=== PATIENT | female | born 1945 | race Caucasian/White ===

== ENCOUNTER 2016-08-03 05:05 | Observation (INO) | payer MEDICARE ==
--- NOTE | 2016-08-03 05:29 | ED ---
General Adult HPI - General Chief complaint: Chest Pain Stated complaint: chest pain Time Seen by Provider: 08/03/16 05:16 Source: patient, RN notes reviewed Mode of arrival: EMS Limitations: no limitations - History of Present Illness Initial comments: Patient is a pleasant 70-year-old female presenting to the emergency department complaining of chest discomfort. Patient was transferred from [place] for cardiac evaluation. Patient is currently symptom-free. Patient has been having symptoms for the past 2 weeks. Symptoms are exertional. Symptoms started last night with housework. No associated dyspnea however patient does have some associated nausea. No diaphoresis. Symptoms are somewhat similar to patient's previous heart attack and stent placement however not quite as severe. No radiation. Review of Systems ROS Statement: Those systems with pertinent positive or pertinent negative responses have been documented in the HPI. ROS Other: All systems not noted in ROS Statement are negative. Constitutional: Denies: fever Eyes: Denies: eye pain ENT: Denies: ear pain Respiratory: Denies: cough Cardiovascular: Reports: chest pain Endocrine: Denies: fatigue Gastrointestinal: Reports: nausea Genitourinary: Denies: dysuria Musculoskeletal: Denies: back pain Skin: Denies: rash Neurological: Denies: weakness Past Medical History Past Medical History: COPD, Myocardial Infarction ([place]) Additional Past Medical History / Comment(s): had stent placed in 2009 after [place] History of Any Multi-Drug Resistant Organisms: None Reported Past Surgical History: Heart Catheterization With Stent Past Psychological History: No Psychological Hx Reported Smoking Status: Former smoker Past Alcohol Use History: None Reported Past Drug Use History: None Reported General Exam Limitations: no limitations General appearance: alert, in no apparent distress Head exam: Present: atraumatic Eye exam: Present: normal appearance, PERRL ENT exam: Present: normal oropharynx Neck exam: Present: normal inspection Respiratory exam: Present: normal lung sounds bilaterally. Absent: chest wall tenderness Cardiovascular Exam: Present: regular rate, normal rhythm Expanded Peripheral pulses: 2+: Radial (R), Radial (L), Dorsalis Pedis (R), Dorsalis Pedis (L) GI/Abdominal exam: Present: soft. Absent: tenderness Extremities exam: Present: normal inspection. Absent: pedal edema, calf tenderness Neurological exam: Present: alert Psychiatric exam: Present: normal affect, normal mood Skin exam: Absent: rash Course Vital Signs 08/03/16 05:07 Temperature 97.4 F L Pulse Rate 80 Respiratory 20 Rate Blood Pressure 160/73 O2 Sat by Pulse 98 Oximetry EKG Findings - EKG Comments: EKG Findings:: Normal sinus rhythm 73. Normal intervals. Normal axis. Normal QRS. Normal ST-T. Medical Decision Making - Medical Decision Making Reviewed chart and lab work and x-ray and EKG from [place]. Case was discussed with Dr. Peguero, who will admit for hospital call. Disposition Clinical Impression: Unstable angina pectoris Disposition: ADMITTED IP TO THIS HOSP Referrals: Oliver Guadalupe DO [Primary Care Provider] - 1-2 days Time of Disposition: 05:32
[2016-08-03] MEDS ORDERED: HEPARIN SODIUM,PORCINE 5,000 UNIT/ML 1 ML VIAL IV PRN (05:32)
[2016-08-03] MEDS ORDERED: HEPARIN SODIUM,PORCINE 5,000 UNIT/ML 1 ML VIAL IV ONE (05:32)
[2016-08-03] MEDS ORDERED: HEPARIN SODIUM,PORCINE/D5W PMX 25,000 UNIT in DEXTROSE/WATER 1 500ML.BAG IV SCH (05:45)
[2016-08-03] MEDS ORDERED: NITROGLYCERIN OINT 1 INCH/GM PACKET TOPICAL SCH (06:00)
[2016-08-03] MEDS: NITROGLYCERIN SL TABS 0.4 MG TAB SUBLINGUAL PRN ×4 (06:03→07:14)
[2016-08-03] MEDS ORDERED: MORPHINE SULFATE 2 MG/ML SYRINGE IVP PRN (07:21)
--- NOTE | 2016-08-03 08:00 | P.CRDCN ---
History of Present Illness Consult date: 08/03/16 Chief complaint: Chest pain History of present illness: This is a pleasant 70-year-old female patient who sees Dr. Dr. Briggs with a past medical history significant for CAD and prior stenting of the RCA was performed in 2009, hypertension, dyslipidemia, and significant history of smoking, was transferred from [facility] for further cardiac evaluation. She has been experiencing intermittent episodes of chest discomfort started around the new and continuous since then. She described intermittent episodes of pressure in the middle of the chest exertional and at resting without any radiation to the arm or neck or shoulders and without associated symptoms. 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 The patient was transferred from [facility] and we don't have any blood work at this point but she is in process to have troponin drawn. The EKG showed sinus mechanism without any significant ST or T-wave abnormalities noted. I would obtain serial cardiac enzymes. Continue monitor the patient's. If she develop any more chest discomfort I would consider proceeding with heart catheterization. Past Medical History Past Medical History: Coronary Artery Disease (CAD), Chest Pain / Angina, COPD, CVA/TIA, GERD/Reflux, Hyperlipidemia, Hypertension, Myocardial Infarction ([place]), Pneumonia Additional Past Medical History / Comment(s): had stent placed in 2009 after [place] Last Myocardial Infarction Date:: 2009 History of Any Multi-Drug Resistant Organisms: None Reported Past Surgical History: Breast Surgery, Heart Catheterization With Stent, Hysterectomy, Tonsillectomy Additional Past Surgical History / Comment(s): cath with stent in 2009, benign breast biopsies, stomach tumor removal Additional Past Anesthesia/Blood Transfusion Reaction / Comment(s): pt states blood pressure drops and that she takes a long time to come out of anesthesia Date of Last Stent Placement:: 2009 Past Psychological History: No Psychological Hx Reported Smoking Status: Former smoker Past Alcohol Use History: None Reported Past Drug Use History: None Reported - Past Family History Father Family Medical History: Myocardial Infarction ([place]) Additional Family Medical History / Comment(s): at 73 from [place] Mother Family Medical History: Cancer, Myocardial Infarction ([place]) Additional Family Medical History / Comment(s): from lung cancer Sister(s) Family Medical History: Diabetes Mellitus Brother(s) Family Medical History: Diabetes Mellitus Daughter(s) Additional Family Medical History / Comment(s): was in a bad car accident and is addicted to prescription pills Medications and Allergies Home Medications Medication Instructions Recorded Confirmed Type Albuterol Inhaler [Ventolin Hfa 60 mcg INHALATION PRN 08/03/16 History Inhaler] Ascorbic Acid [Vitamin C] 500 mg PO BID 08/03/16 08/03/16 History Aspirin [Adult Low Dose Aspirin EC] 81 mg PO DAILY 08/03/16 08/03/16 History Cyanocobalamin [Vitamin B-12] 1,000 mg PO DAILY 08/03/16 08/03/16 History Fluticasone/Salmeterol [Advair 1 mcg INHALATION BID 08/03/16 08/03/16 History 250-50 Diskus] Magnesium 500 mg PO HS 08/03/16 08/03/16 History Metoprolol Succinate (ER) [Toprol 25 mg PO HS 08/03/16 08/03/16 History Xl] Metoprolol Succinate (ER) [Toprol 50 mg PO DAILY 08/03/16 08/03/16 History Xl] Multivitamins, Thera [Multivitamin] PO DAILY 08/03/16 History [place]-3 Fatty Acids/Fish Oil [Fish 1,000 mg PO DAILY 08/03/16 08/03/16 History Oil 1,000 mg Softgel] Pantoprazole [Protonix] 40 mg PO HS 08/03/16 08/03/16 History Potassium 595 mg PO HS 08/03/16 08/03/16 History Tiotropium 18 Mcg/Puff [Spiriva] 1 cap INHALATION DAILY 08/03/16 08/03/16 History amLODIPine [Norvasc] 2.5 mg PO DAILY 08/03/16 08/03/16 History Allergies Allergy/AdvReac Type Severity Reaction Status Date / Time cefaclor [From Ceclor] Allergy Anaphylaxis Verified 08/03/16 05:43 Penicillins AdvReac Severe Anaphylaxis Verified 08/03/16 05:43 acetaminophen [From Vicodin] AdvReac Anaphylaxis Verified 08/03/16 05:43 hydrocodone [From Vicodin] AdvReac Anaphylaxis Verified 08/03/16 05:43 Physical Exam Vitals: Vital Signs Temp Pulse Resp BP 08/03/16 06:46 18 08/03/16 06:08 97.5 F L 88 18 126/65 Intake and Output 08/02/16 08/03/16 08/03/16 22:59 06:59 14:59 Intake Total 25 Balance 25 Intake: Amount of Fluid Infused ( 25 ml) Other: # Voids 1 - Constitutional General appearance: no acute distress - Respiratory Respiratory: bilateral: CTA - Cardiovascular Rhythm: regular Heart sounds: normal: S1, S2 Abnormal Heart Sounds: systolic murmur Results 08/03/16 07:03 Coagulation 08/03/16 Range/Units 07:03 APTT 41.2 H (22.0-30.0) sec CBC 08/03/16 Range/Units 07:03 Plt Count 171 (150-450) k/uL Current Medications Generic Name Dose Route Start Last Admin Trade Name Freq PRN Reason Stop Dose Admin Aspirin 325 mg 08/04/16 09:00 Aspirin PO DAILY [facility] Heparin Sodium (Porcine) 0 unit 08/03/16 05:32 Heparin IV Q6HR PRN Low PTT Protocol Heparin Sodium/Dextrose 25,000 500 mls @ 17.41 mls/hr 08/03/16 05:45 06:06 unit/ IV Solution IV 12 units/kg/hr .Q24H PREETI 17.41 mls/hr Protocol Administration 12 UNITS/KG/HR Morphine Sulfate 2 mg 08/03/16 07:21 08/03/16 07:37 Morphine Sulfate (Inj) IVP 2 mg Q4H PRN Administration Pain/Discomfort Nitroglycerin 1 inch 08/03/16 06:00 08/03/16 06:15 Nitro-Bid Oint TOPICAL Not Given Q6HR [facility] Nitroglycerin 0.4 mg 08/03/16 05:32 08/03/16 07:14 Nitrostat SUBLINGUAL 0.4 mg Q5M PRN Administration Chest Pain Intake and Output 08/02/16 08/03/16 08/03/16 22:59 06:59 14:59 Intake Total 25 Balance 25 Intake: Amount of Fluid Infused ( 25 ml) Other: # Voids 1 08/03/16 07:03 Assessment and Plan Plan: Assessment #1 intermittent episodes of chest discomfort #2 known CAD with prior RCA stenting #3 significant history of smoking Plan #1 obtain serial cardiac enzymes #2 obtain an echocardiogram was Doppler #3 follow-up with the patient
[2016-08-03 08:14] LABS: Creatine Kinase 61 U/L (30-135)
[2016-08-03 08:27] LABS: Creatine Kinase MB 0.8 ng/mL (0.0-2.4); Troponin I <0.012 ng/mL (0.000-0.034)
[2016-08-03] MEDS ORDERED: NITROGLYCERIN SL TABS 0.4 MG TAB SUBLINGUAL PRN (08:28)
[2016-08-03] MEDS ORDERED: ALPRAZolam 0.25 MG TAB PO PRN (08:28)
[2016-08-03] MEDS ORDERED: ATORVASTATIN 80 MG TAB PO STA (08:28)
[2016-08-03] MEDS ORDERED: SODIUM CHLORIDE 0.9% 1,000 ML in EMPTY BAG 1 BAG IV ONE (08:28)
[2016-08-03] MEDS ORDERED: ASPIRIN 325 MG TAB PO STA (08:28)
[2016-08-03] MEDS ORDERED: ALBUTEROL NEBULIZED 2.5 MG/3 ML INHALATION PRN (08:30)
[2016-08-03] MEDS ORDERED: NON-FORMULARY DRUG (Omega-3 Fatty Acids/Fish Oil [Fish Oil 1,000 Mg Softgel] 1,000 MG) PO SCH (09:00)
[2016-08-03] MEDS: METOPROLOL SUCCINATE (ER) 50 MG TAB.ER.24H PO SCH (09:21)
[2016-08-03] MEDS: amLODIPine 2.5 MG TAB PO SCH (09:22)
[2016-08-03] MEDS: ASCORBIC ACID 500 MG TAB PO SCH ×2 (09:22→20:19)
[2016-08-03] MEDS ORDERED: LIDOCAINE 2% INJ 20 MG/ML (20 ML MDV) ONE (10:14)
[2016-08-03] MEDS ORDERED: IV FLUID CONTINUATION 250 ML IV ONE (10:20)
[2016-08-03] MEDS ORDERED: diphenhydrAMINE 50 MG/ML 1 ML VIAL IVP ONE (10:40)
[2016-08-03] MEDS ORDERED: diphenhydrAMINE 50 MG/ML 1 ML VIAL ONE (10:42)
[2016-08-03] MEDS ORDERED: MIDAZOLAM 2 MG/2 ML VIAL ONE (10:42)
[2016-08-03] MEDS ORDERED: MIDAZOLAM 2 MG/2 ML VIAL IV ONE (10:43)
[2016-08-03] MEDS ORDERED: LIDOCAINE 2% INJ 20 MG/ML SQ ONE (10:51)
[2016-08-03] MEDS ORDERED: IOHEXOL 350 MG/ML 100 ML BOTTLE INJ ONE (11:11)
[2016-08-03] MEDS ORDERED: RX INFO: IV CONTRAST WAS GIVEN 1 EACH MISC MISCELLANE PRN (11:21)
[2016-08-03] MEDS ORDERED: ISOSORBIDE MONONITRATE ER 15 MG TAB PO STA (11:23)
--- NOTE | 2016-08-03 11:27 | P.PCN ---
Date of Procedure: 08/03/16 Preoperative Diagnosis: Unstable angina Postoperative Diagnosis: The same Procedure(s) Performed: Left heart catheterization without left ventriculography Description of Procedure: HISTORY: This is a 70-year-old female with history of ischemic or disease with a previous stent placement of the RCA who is admitted to the hospital with recurrent chest pains for the last week or so. Her cardiac enzymes are negative. EKGs did not reveal any acute changes. Patient was seen by Dr. Erickson and advised to have cardiac catheterization to rule out any progression of ischemic heart disease. CONSENT:We have discussed the risks, benefits and alternative therapies for the above-mentioned procedure and for both sedation/analgesia as well as necessary blood product administration, if indicated, as they pertain to this patient. The patient has indicated understanding and acceptance of the risks and procedures discussed. PROCEDURE: Patient was brought to the lab in a fasting state. Patient was given some IV sedation. The right groin is infiltrated with lidocaine and right femoral artery was entered using Seldinger technique. A 6-Sinhala catheter was left in place and selective coronary arteriography and left ventriculography was performed. Patient tolerated the procedure well. Femoral angiogram was performed and Angio-Seal was applied for hemostasis. No immediate complications were noted and patient was transferred to [facility] in a stable condition HEMODYNAMICS: Aortic pressure is 130/70. Left lower end-diastolic pressure is 15. No gradient across the aortic valve SELECTIVE CORONARY ARTERIOGRAPHY: LEFT MAIN: Normal length and patent THE LEFT ANTERIOR DESCENDING CORONARY ARTERY: This is a good caliber vessel giving rise to good-sized diagonal branch. This is free of any significant occlusive disease. THE LEFT CIRCUMFLEX AND IS CORONARY ARTERY: This is a nondominant vessel has mild plaque giving rise to a small OM and PLV branch. The circumflex coronary artery is free of significant occlusive disease THE RIGHT CORONARY ARTERY:this is a dominant vessel giving rise to good-sized PDA and PLV. There is mild in-stent stenosis of 20-30 %. No critical lesions are noted. Not performed LEFT VENTRICULOGRAPHY: FINAL IMPRESSION: Mild in-stent stenosis of the RCA without any significant critical lesions PLAN: Maximum medical therapy and this factor modification PROGNOSIS: Fair
--- NOTE | 2016-08-03 11:56 | ECHOF ---
Referral Reason:chest pain MEASUREMENTS -------- HEIGHT: 177.8 cm WEIGHT: 72.6 kg BP: 106/60 IVSd: 1.0 cm (0.6 - 1.1) LVIDd: 3.9 cm (3.9 - 5.3) LVPWd: 1.3 cm (0.6 - 1.1) IVSs: 1.8 cm LVIDs: 1.9 cm LVPWs: 1.9 cm Ao Diam: 2.5 cm (2.0 - 3.7) AV Cusp: 1.6 cm (1.5 - 2.6) LA Diam: 2.3 cm (2.7 - 3.8) MV EXCURSION: 15.965 mm (> 18.000) MV EF SLOPE: 110 mm/s (70 - 150) EPSS: 1.5 cm MV E Marco: 0.79 m/s MV DecT: 245 ms MV A Marco: 0.84 m/s MV E/A Ratio: 0.95 FINDINGS -------- Sinus rhythm. This was a technically difficult study with suboptimal views. Overall left ventricular systolic function is normal with, an EF between 55 - 60 %. The RV was not well visualized. The left atrium was not well visualized. The right atrium was not well visualized. 1.5mg of Definity was utilized for enhancement of images The aortic valve is trileaflet, and appears structurally normal. No aortic stenosis or regurgitation. The mitral valve leaflets are mildly thickened. There is trace mitral regurgitation. Trace tricuspid regurgitation present. The right ventricular systolic pressure, as measured by Doppler, is {RVSP}. Pulmonic valve appears structurally normal. The aortic root, ascending aorta and aortic arch are normal. The pericardium is normal. CONCLUSIONS -------- 1. Sinus rhythm. 2. There is trace mitral regurgitation. 3. Trace tricuspid regurgitation present. 4. The right ventricular systolic pressure, as measured by Doppler, is {RVSP}. 5. Pulmonic valve appears structurally normal. 6. The aortic root, ascending aorta and aortic arch are normal. 7. The pericardium is normal. 8. This was a technically difficult study with suboptimal views. 9. Overall left ventricular systolic function is normal with, an EF between 55 - 60 %. 10. The RV was not well visualized. 11. The left atrium was not well visualized. 12. The right atrium was not well visualized. 13. 1.5mg of Definity was utilized for enhancement of images 14. The aortic valve is trileaflet, and appears structurally normal. No aortic stenosis or regurgitation. 15. The mitral valve leaflets are mildly thickened. MOVIE STAR: Macy Neal RDCS
--- NOTE | 2016-08-03 13:38 | HP ---
DATE OF ADMISSION: CHIEF COMPLAINT: Chest pain. HISTORY OF PRESENT ILLNESS: This is another admission for this 70-year-old G6, P1, A5 female who has a history of coronary artery disease. She had a stent placed in 2009. She has a strong family history and their dad of an [place]. Her mother also is being treated for lung cancer. The patient has a history of hypertension and hyperlipidemia. She developed pressure-like discomfort in the anterior chest and it became quite severe. She felt dizzy, but did not pass out. She was a little bit nauseated and short of breath, but she had no diaphoresis. She has been having discomfort on and off over the last month. EKG and enzymes are unremarkable in the ER, but she is high risk for redevelopment of coronary artery disease. REVIEW OF SYSTEMS: She has had no syncope, CVAs, change in vision or hearing, cough, hemoptysis, lung disease, orthopnea, PND, abdominal pain, nausea, vomiting, hematemesis, melena, hematochezia, jaundice, hematuria, frequency, urgency, renal disease, diabetes, etc. Past medical history, family history and personal and social histories are otherwise unremarkable and unchanged. She is on metoprolol, Protonix, aspirin, amlodipine, Ventolin inhaler, Advair and Spiriva. She does have COPD. She is allergic to VICODIN, PENICILLIN and CECLOR. Surgically, she has had the stent procedure. She does not smoke now, but she just quit a month ago. PHYSICAL EXAMINATION: Blood pressure 106/60 with a pulse of 83 and regular, respirations 20, and she is afebrile. GENERAL: She appeared to be well developed, well nourished, in no acute distress. Skin color is normal. Skin is warm and dry. Lymph nodes are not enlarged. Head, ears, eyes, nose, mouth and throat were normal. Neck veins not distended. Thyroid is not enlarged. Chest is clear. Cardiac exam is normal. Abdomen is soft, nontender. EXTREMITIES: Normal. NEUROLOGICAL: She is intact. IMPRESSION: 1. Unstable angina pectoris. 2. Coronary artery disease. 3. Hypertension. 4. Hyperlipidemia. 5. Family history of heart disease. PLAN: 1. Bed rest. 2. IV fluids. 3. Serial EKGs and enzymes. 4. Cardiology consult.
[2016-08-03] MEDS: MULTIVITAMINS, THERA 1 EACH TAB PO SCH (13:52)
[2016-08-03] MEDS: CYANOCOBALAMIN 500 MCG TAB PO SCH ×2 (13:53→14:23)
[2016-08-03] MEDS: TIOTROPIUM 18 MCG/PUFF INHALER INHALATION SCH (18:59)
[2016-08-03] MEDS: SYMBICORT 80-4.5 MCG INHALER INHALATION SCH (18:59)
[2016-08-03 19:42] VITALS: RESP 18
[2016-08-03] MEDS ORDERED: MAG HYDROX/AL HYDROX/SIMETH 30 ML CUP PO PRN (19:56)
[2016-08-03] MEDS: SODIUM CHLORIDE 0.9% 1,000 ML IV SCH (20:19)
[2016-08-03] MEDS ORDERED: POTASSIUM 595 MG PO SCH (21:00)
[2016-08-03] MEDS ORDERED: MAGNESIUM OXIDE 400 MG TAB PO SCH (21:00)
[2016-08-03] MEDS ORDERED: METOPROLOL SUCCINATE (ER) 25 MG TAB.ER.24H PO SCH (21:00)
[2016-08-03] MEDS ORDERED: PANTOPRAZOLE 40 MG TABLET PO SCH (21:00)
[2016-08-04] MEDS: SODIUM CHLORIDE 0.9% 1,000 ML IV SCH (04:59)
[2016-08-04 07:23] LABS: Cholesterol 144 mg/dL (<200); HDL Cholesterol 54 mg/dL (40-60); Triglycerides 103 mg/dL (<150)
[2016-08-04] MEDS: SYMBICORT 80-4.5 MCG INHALER INHALATION SCH (08:03)
[2016-08-04] MEDS: TIOTROPIUM 18 MCG/PUFF INHALER INHALATION SCH (08:03)
[2016-08-04 08:24] VITALS: BP 119/67; PULSE 69; TEMP 98.1
--- NOTE | 2016-08-04 08:35 | P.PN ---
Subjective Principal diagnosis: Chest pain/CAD This is a pleasant 70-year-old female patient who sees Dr. Dr. Briggs with a past medical history significant for CAD and prior stenting of the RCA was performed in 2009, hypertension, dyslipidemia, and significant history of smoking, was transferred from [facility] for further cardiac evaluation. She has been experiencing intermittent episodes of chest discomfort started around the new and continuous since then. She described intermittent episodes of pressure in the middle of the chest exertional and at resting without any radiation to the arm or neck or shoulders and without associated symptoms. 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 The patient was transferred from [facility] and we don't have any blood work at this point but she is in process to have troponin drawn. The EKG showed sinus mechanism without any significant ST or T-wave abnormalities noted. The patient underwent a heart catheterization by Dr. Dr. Briggs and that showed no evidence of CVA or CAD. From the cardiovascular standpoint of view, she can be discharged home. Objective - Vital Signs Vital signs: Vital Signs Temp 98.1 F 08/04/16 08:00 Pulse 69 08/04/16 08:00 Resp 18 08/04/16 08:00 BP 119/67 08/04/16 08:00 Pulse Ox 95 08/04/16 08:00 Intake & Output 08/03/16 08/04/16 08/04/16 18:59 06:59 18:59 Intake Total 125 Balance 125 Weight 73.2 kg Intake: IV 125 Other: Voiding Method Toilet Toilet # Voids 1 - Constitutional General appearance: Present: no acute distress - Respiratory Respiratory: bilateral: CTA - Cardiovascular Rhythm: regular Heart sounds: normal: S1, S2 - Labs CBC & Chem 7: 08/04/16 06:42 Assessment and Plan Plan: Assessment #1 intermittent episodes of chest discomfort #2 known CAD with prior RCA stenting #3 significant history of smoking Plan #1 the heart catheterization showed no evidence of severe CAD #2 the patient can be discharged home
[2016-08-04] MEDS: ASCORBIC ACID 500 MG TAB PO SCH (08:59)
[2016-08-04] MEDS: amLODIPine 2.5 MG TAB PO SCH (09:00)
[2016-08-04] MEDS: CYANOCOBALAMIN 500 MCG TAB PO SCH (09:00)
[2016-08-04] MEDS ORDERED: ASPIRIN 325 MG TAB PO SCH (09:00)
[2016-08-04] MEDS: METOPROLOL SUCCINATE (ER) 50 MG TAB.ER.24H PO SCH (09:00)
[2016-08-04] MEDS: MULTIVITAMINS, THERA 1 EACH TAB PO SCH (12:35)
--- NOTE | 2016-08-04 15:04 | DS ---
DATE OF ADMISSION: 08/03/2016 DATE OF DISCHARGE: 08/04/2016 CHIEF COMPLAINT: Chest pain. HISTORY OF PRESENT ILLNESS AND PHYSICAL EXAM: Details of this lady's history and physical can be found in the initial work-up. LABORATORY STUDIES: While she was in the hospital, she had laboratory studies, details of which can be found in the laboratory section of her chart. COURSE IN THE HOSPITAL: After admission, she was placed on bed rest and started on intravenous fluids and she had serial EKGs and enzymes. Her history was highly suggestive of unstable angina, and she was seen by Cardiology and taken to the [facility] where a cath was performed and the following day it was felt that she could be discharged. She will follow up either with us or her own private physician and Cardiology. FINAL DIAGNOSES: 1. Unstable angina pectoris. 2. Coronary artery disease. 3. Chronic obstructive pulmonary disease. 4. Hypertension. OPERATIONS: None. CONSULTATION: Cardiology. She is improved.
== END 2016-08-04 13:08 | disposition home or self-care (01) ==
LOC: EC 05:05 → 3OBS 05:29
PROVIDERS: ADMIT Family Medicine; ATTEND Family Medicine
DX: I25.110 Atherosclerotic heart disease of native coronary artery with unstable angina pectoris (principal); J44.9 Chronic obstructive pulmonary disease, unspecified; I10 Essential (primary) hypertension; E78.5 Hyperlipidemia, unspecified; I25.2 Old myocardial infarction; K21.9 Gastro-esophageal reflux disease without esophagitis; T82.855A Stenosis of coronary artery stent, initial encounter; Y83.1 Surgical operation with implant of artificial internal device as the cause of abnormal reaction of the patient, or of later complication, without mention of misadventure at the time of the procedure; Z79.82 Long term (current) use of aspirin; Z80.1 Family history of malignant neoplasm of trachea, bronchus and lung; Z82.49 Family history of ischemic heart disease and other diseases of the circulatory system; Z86.73 Personal history of transient ischemic attack (TIA), and cerebral infarction without residual deficits; Z87.891 Personal history of nicotine dependence; Z79.899 Other long term (current) drug therapy; Z88.6 Allergy status to analgesic agent; Z88.5 Allergy status to narcotic agent; Z88.0 Allergy status to penicillin; Z88.8 Allergy status to other drugs, medicaments and biological substances
CPT/HCPCS: 94640 ×4; 93005; 80061; 82550; 82553; 84484; 85049 ×2; 85730; 93458; 99285; 96365; 96376; G0378 ×2; C8929; J2001; J2250; J1200; J1644 ×2; Q9967; J2270; Q9957; 93306

== ENCOUNTER 2017-10-03 09:36 | Day surgery (SDC) | payer MEDICARE ==
[2017-09-30 09:22] VITALS: BMI 26.6
--- NOTE | 2017-10-03 07:24 | P.GSHP ---
History of Present Illness H&P Date: 10/03/17 CHIEF COMPLAINT: Cholecystitis HISTORY OF PRESENT ILLNESS: The patient is a 71-year-old female who presents with history of epigastric including right upper quadrant abdominal pain. She underwent diagnostic studies for her gallbladder. Separately her clinical picture was consistent with cholecystitis. Now she presents for surgical intervention. PAST MEDICAL HISTORY: Please see list PAST SURGICAL HISTORY: Please see list MEDICATIONS: Please see list ALLERGIES: Denies. SOCIAL HISTORY: No illicit drug use or recent tobacco use FAMILY HISTORY: Pertinent for gallbladder disease REVIEW OF ORGAN SYSTEMS: CONSTITUTIONAL: No reports of fevers or chills. HEENT: Denies any troubles with the vision or hearing. ENDOCRINE: No reports of hypothyroidism. No diabetes. RESPIRATORY: No recent pneumonias. CARDIOVASCULAR: Denies chest pain or palpitations GI: No blood in stools or constipation. MUSCULOSKELETAL: Has occasional joint pain including back pain. NEURO: No seizure disorders or headaches. No recent stroke. PSYCH: No depression or suicidal ideation. HEMATOLOGIC: No personal or family history of DVTs or pulmonary emboli. PHYSICAL EXAM: VITAL SIGNS: Afebrile vital signs stable GENERAL: Well-developed pleasant in no acute distress. HEENT: No scleral icterus. Extraocular movements grossly intact. Moist buccal mucosa. NECK: Supple without lymphadenopathy. CHEST: Unlabored respirations. Equal bilateral excursions. CARDIOVASCULAR: Regular rate regular rhythm rhythm. Distal 2+ pulses. ABDOMEN: Soft, nondistended. Tender along the epigastrium and right upper quadrant. MUSCULOSKELETAL: No clubbing, cyanosis, or edema. NEURO: Cranial nerves II to XII within normal limits. No focal or lateralizing signs. PSYCH: Alert and oriented to person, place and time. ASSESSMENT: 1. Epigastric and right upper quadrant abdominal pain 2. Chronic cholecystitis PLAN: 1. Will need a robotic cholecystectomy possible open. Benefits and risks were described. 2. Heparin for DVT prophylaxis 5000 units. 3. Antibiotic prophylaxis. Past Medical History Past Medical History: Coronary Artery Disease (CAD), Chest Pain / Angina, COPD, GERD/Reflux, Hyperlipidemia, Hypertension, Myocardial Infarction ([place]), Pneumonia Additional Past Medical History / Comment(s): had stent placed in 2009 after [place] Last Myocardial Infarction Date:: 2009 History of Any Multi-Drug Resistant Organisms: None Reported Past Surgical History: Breast Surgery, Heart Catheterization With Stent, Hysterectomy, Tonsillectomy Additional Past Surgical History / Comment(s): cath with stent in 2009, benign breast biopsies, stomach tumor removal, small cancer removed from R upper lobe 2010. No radiation or chemo needed. Additional Past Anesthesia/Blood Transfusion Reaction / Comment(s): pt states blood pressure drops and that she takes a long time to come out of anesthesia Date of Last Stent Placement:: 2009 Smoking Status: Former smoker - Past Family History Father Family Medical History: Myocardial Infarction ([place]) Additional Family Medical History / Comment(s): at 73 from [place] Mother Family Medical History: Cancer, Myocardial Infarction ([place]) Additional Family Medical History / Comment(s): from lung cancer Sister(s) Family Medical History: Diabetes Mellitus Brother(s) Family Medical History: Diabetes Mellitus Daughter(s) Additional Family Medical History / Comment(s): was in a bad car accident and is addicted to prescription pills Medications and Allergies Home Medications Medication Instructions Recorded Confirmed Type Albuterol Inhaler [Ventolin Hfa 1 - 2 puff INHALATION RT-Q6H PRN 08/03/16 History Inhaler] Ascorbic Acid [Vitamin C] 500 mg PO BID 08/03/16 09/30/17 History Aspirin [Adult Low Dose Aspirin EC] 81 mg PO DAILY 08/03/16 09/30/17 History Cyanocobalamin [Vitamin B-12] 1,000 mg PO DAILY 08/03/16 09/30/17 History Magnesium Oxide [Mag-Ox] 500 mg PO HS 08/03/16 09/30/17 History Metoprolol Succinate (ER) [Toprol 25 mg PO DAILY 08/03/16 09/30/17 History Xl] Metoprolol Succinate (ER) [Toprol 50 mg PO HS 08/03/16 09/30/17 History Xl] Multivitamins, Thera [Multivitamin] 1 tab PO DAILY 08/03/16 09/30/17 History [place]-3 Fatty Acids/Fish Oil [Fish 1 cap PO DAILY 08/03/16 09/30/17 History Oil 1,000 mg Softgel] Pantoprazole [Protonix] 40 mg PO HS 08/03/16 09/30/17 History Tiotropium 18 Mcg/Puff [Spiriva] 1 cap INHALATION DAILY 08/03/16 09/30/17 History Cholecalciferol [Vitamin D3] 1,000 unit PO DAILY 09/30/17 09/30/17 History Mometasone/Formoterol [Dulera 100 2 puff INHALATION BID 09/30/17 09/30/17 History Mcg/5 Mcg Inhaler] Allergies Allergy/AdvReac Type Severity Reaction Status Date / Time cefaclor [From Ceclor] Allergy Anaphylaxis Verified 09/30/17 08:46 Penicillins AdvReac Severe Anaphylaxis Verified 09/30/17 08:46 acetaminophen [From Vicodin] AdvReac Anaphylaxis Verified 09/30/17 08:46 hydrocodone [From Vicodin] AdvReac Anaphylaxis Verified 09/30/17 08:46
[~2017-10-03 09:36] MED LIST: CLINDAMYCIN 900 MG in DEXTROSE 5% IN WATER 50 ML IVPB ONE; DEXAMETHASONE SOD PHOSPHATE 10 MG/ML 1 ML VIAL IV ONE; GENTAMICIN 400 MG in SODIUM CHLORIDE 0.9% 100 ML IVPB ONE; HEPARIN SODIUM,PORCINE 5,000 UNIT/ML 1 ML VIAL SQ ONE; INDOCYANINE GREEN 25 MG VIAL IV STA; LACTATED RINGERS 1,000 ML IV ONE; LIDOCAINE 1% 20 ML VIAL (10MG/ML) FOR IV START INTRADERMA PRN; MIDAZOLAM 2 MG/2 ML VIAL IV PRN; MORPHINE SULFATE 4 MG/ML SYRINGE IV PRN; ONDANSETRON 4 MG/2 ML VIAL IVP ONE; SCOPOLAMINE 1.5MG/72HR PATCH TRANSDERM ONE
[2017-10-03 10:16] LABS: Basophils # (A) 0.1 k/uL (0-0.2); Basophils % (A) 1 %; Eosinophils # (A) 0.1 k/uL (0-0.7); Eosinophils % (A) 1 %; HCT 44.4 % (34.0-46.0); HGB 15.1 gm/dL (11.4-16.0); Lymphocytes # (A) 2.1 k/uL (1.0-4.8); Lymphocytes % (A) 19 %; MCHC 34.1 g/dL (31.0-37.0); MCV 93.8 fL (80.0-100.0); Mean Platelet Volume 7.7; Monocytes # (A) 0.5 k/uL (0-1.0); Monocytes % (A) 5 %; Neutrophils # (A) 7.8 k/uL (1.3-7.7); Neutrophils % (A) 73 %; Platelet Count 188 k/uL (150-450); RBC 4.73 m/uL (3.80-5.40); RDW 12.8 % (11.5-15.5); WBC 10.7 k/uL (3.8-10.6)
[2017-10-03 10:35] LABS: ALT 86 U/L (9-52); AST 63 U/L (14-36); Albumin 4.5 g/dL (3.5-5.0); Alkaline Phosphatase 71 U/L (38-126); Anion Gap 9 mmol/L; Blood Urea Nitrogen 15 mg/dL (7-17); Calcium 9.3 mg/dL (8.4-10.2); Carbon Dioxide 26 mmol/L (22-30); Chloride 108 mmol/L (98-107); Glucose 89 mg/dL (74-99); Potassium 4.4 mmol/L (3.5-5.1); Sodium 143 mmol/L (137-145); Total Bilirubin 1.3 mg/dL (0.2-1.3); Total Protein 7.3 g/dL (6.3-8.2)
[2017-10-03] MEDS ORDERED: fentaNYL (PF) 50 MCG/ML 2 ML AMP ONE (10:54)
[2017-10-03] MEDS ORDERED: PROPOFOL 10 MG/ML 20 ML VIAL IV ONE (10:54)
[2017-10-03] MEDS ORDERED: GLYCOPYRROLATE 0.2 MG/ML 2 ML VIAL ONE (10:54)
[2017-10-03] MEDS ORDERED: MIDAZOLAM 2 MG/2 ML VIAL ONE (10:54)
[2017-10-03] MEDS ORDERED: LIDOCAINE 1% INJ 10MG/ML (20 ML MDV) ONE (10:54)
[2017-10-03] MEDS ORDERED: SUCCINYLCHOLINE CHLORIDE 100 MG/5 ML SYR IV ONE (10:54)
[2017-10-03] MEDS ORDERED: NEOSTIGMINE 1 MG/ML 10 ML VIAL ONE (10:54)
[2017-10-03] MEDS ORDERED: ROCURONIUM BROMIDE 10 MG/ML 10 ML VIAL IV ONE (10:54)
[2017-10-03] MEDS ORDERED: BUPIVACAINE (PF) 0.25% 30 ML VIAL SQ ONE (11:19)
[2017-10-03 12:14] VITALS: TEMP 99.4
[2017-10-03 12:20] VITALS: RESP 18
[2017-10-03] MEDS ORDERED: Acetaminophen-Codeine 300-30mg TAB PO STA (13:30)
[2017-10-03] MEDS ORDERED: Acetaminophen-Codeine 300-30mg TAB PO ONE (13:33)
[2017-10-03 14:33] VITALS: BP 129/66; PULSE 84
--- NOTE | 2017-10-03 14:49 | P.OP ---
Date of Procedure: 10/03/17 Description of Procedure: SURGEON: JAZLYN COLUNGA MD PHOTOGRAPHIC PRINTER: TED CHILDERS PREOPERATIVE DIAGNOSES: 1. Chronic cholecystitis. 2. Biliary dyskinesia 3. Hypertensive cardiomyopathy 4. Chronic obstructive pulmonary disease POSTOPERATIVE DIAGNOSES: 1. Chronic cholecystitis. 2. Biliary dyskinesia 3. Hypertensive cardiomyopathy 4. Chronic obstructive pulmonary disease 5. Hepatomegaly OPERATION: Robotic-assisted da Tayler Xi laparoscopic cholecystectomy, multiport with FIREFLY ESTIMATED BLOOD LOSS: 5 mL. SPECIMENS REMOVED: Gallbladder. COMPLICATIONS: None. OPERATIVE FINDINGS: 1. Chronic cholecystitis with pericholecystic adhesions INDICATIONS: The patient is a 71-year-old female who presents with chronic cholelcystitis. Surgical intervention with a laparoscopic cholecystectomy was described at length including injury to the biliary tree, bleeding, infection, need for further surgery. Informed consent was obtained. Robotic assisted laparoscopic approach was described. Benefits and risks of the procedure including but not limited to bleeding, infection, injury to the biliary tree was described. Informed consent was obtained. DESCRIPTION OF PROCEDURE: Patient was brought to the operating room, placed in supine position. After general induction, the abdomen had been prepped and draped in standard sterile fashion. The robotic da Tayler XI system was primed. After a timeout protocol was performed, the patient had been prepped and draped in standard sterile fashion. The patient was injected with indocyanine green. The robot was docked along the left lateral abdomen. The patient was repositioned in reverse Trendelenburg position. Please note prior to docking of the robot; however, a 5 mm 0 degrees laparoscopic trocar entry was performed along the left upper quadrant. Next, two 8 mm robotic ports were placed along the right upper abdomen. The camera 8-mm port was maintained along the epigastrium. Another 8 mm port was placed along the left upper abdominal wall after exchanging the 5 mm port. Please note that the ports were placed at least 10 to 15 cm away from the target anatomy of the gallbladder. Using a grasper for arm 3, a grasper for arm 2, including hook cautery for arm 1 , the robotic system was docked and primed as described. Instruments were interchanged by the transport assistant including hook cautery, Bovie cautery scissors and clip appliers. I had sat at the console. Adhesions were identified along the infundibulum of the gallbladder and addressed using hook cautery. The gallbladder fundus was retracted over the dome of the liver. Initial attention was brought to the infundibulum which was gently retracted in the inferior lateral approach. Using a grasper, the cystic duct including the cystic artery was carefully skeletonized. FIREFLY was used to identify the cystic artery and cystic structures. Using a clip live in housekeeper 2 large PLASTIC clips were placed proximally, and 1 clip was placed distally along the cystic duct and then cauterized with the cautery. Again care was taken to avoid any injury to the biliary tree as the common bile duct was clearly visualized during this portion of dissection. Next, the cystic artery was cauterized. Electro-Bovie cautery was used to remove the gallbladder from the hepatic fossa. Hemostasis was checked and found to be adequate. The robot was undocked. I re-scrubbed into the case. Using a 10 mm Endo Catch bag via the left upper quadrant incision, the specimen was removed from the abdominal cavity. All pneumoperitoneum instruments were evacuated from the abdominal cavity. The incisions were reapproximated using 4-0 Monocryl in an interrupted subcuticular fashion. Fascial defect was less than 8 mm in size. Please note along the trocar sites, local anesthetic was placed as a field block prior to insertion of all instruments. Dermabond was applied to the skin. At the end of the procedure needle, sponge, and instrument count had been verified correct by the assembler surgical garment. The patient was transferred to postanesthesia care unit in stable condition. Intraoperative films were shared with the patient's family who were very pleased with the level of care. Console time 14 minutes Plan - Discharge Summary Discharge Rx Participant: Yes New Discharge Prescriptions: New RX: Ibuprofen [Motrin] 600 mg PO Q8HR PRN #20 tab PRN Reason: Pain Continue RX: Metoprolol Succinate (ER) [Toprol XL] 25 mg PO DAILY RX: Metoprolol Succinate (ER) [Toprol XL] 50 mg PO HS RX: Aspirin [Adult Low Dose Aspirin EC] 81 mg PO DAILY RX: Cyanocobalamin [Vitamin B-12] 1,000 mg PO DAILY RX: Ascorbic Acid [Vitamin C] 500 mg PO BID RX: Multivitamins, Thera [Multivitamin (formulary)] 1 tab PO DAILY RX: Tiotropium 18 Mcg/Puff [Spiriva] 1 cap INHALATION DAILY RX: Albuterol Inhaler [Ventolin Hfa Inhaler] 1 - 2 puff INHALATION RT-Q6H PRN PRN Reason: Shortness Of Breath RX: Cholecalciferol [Vitamin D3] 1,000 unit PO DAILY Discontinued RX: Pantoprazole [Protonix] 40 mg PO HS [place]-3 Fatty Acids/Fish Oil [Fish Oil 1,000 mg Softgel] 1 cap PO DAILY RX: Magnesium Oxide [Mag-Ox] 500 mg PO HS Mometasone/Formoterol [Dulera 100 Mcg/5 Mcg Inhaler] 2 puff INHALATION BID Discharge Medication List RX: Albuterol Inhaler [Ventolin Hfa Inhaler] 1 - 2 puff INHALATION RT-Q6H PRN [History] RX: Ascorbic Acid [Vitamin C] 500 mg PO BID 08/03/16 [History] RX: Aspirin [Adult Low Dose Aspirin EC] 81 mg PO DAILY 08/03/16 [History] RX: Cyanocobalamin [Vitamin B-12] 1,000 mg PO DAILY 08/03/16 [History] RX: Metoprolol Succinate (ER) [Toprol XL] 25 mg PO DAILY 08/03/16 [History] RX: Metoprolol Succinate (ER) [Toprol XL] 50 mg PO HS 08/03/16 [History] RX: Multivitamins, Thera [Multivitamin (formulary)] 1 tab PO DAILY 08/03/16 [ History] RX: Tiotropium 18 Mcg/Puff [Spiriva] 1 cap INHALATION DAILY 08/03/16 [History] RX: Cholecalciferol [Vitamin D3] 1,000 unit PO DAILY 09/30/17 [History] RX: Ibuprofen [Motrin] 600 mg PO Q8HR PRN #20 tab 10/03/17 [Rx] Follow up Appointment(s)/Referral(s): Jazlyn Colunga MD [STAFF PHYSICIAN] - 10/07/17 2:00 pm Patient Instructions/Handouts: *Surgery [facility] - Laparoscopic Cholecystectomy Discharge Instructions, *[facility]gery [facility] - (Anesthesia) Discharge Instructions Outpatient Surgery, Low Fat Diet (DC), Laparoscopic Cholecystectomy (DC) Activity/Diet/Wound Care/Special Instructions: May shower. No bath tub soaks. No lifting over 4 pounds in 1 week. Low fat diet. Discharge Disposition: HOME SELF-CARE
== END 2017-10-03 14:57 | disposition home or self-care (01) ==
LOC: OR 09:36
PROVIDERS: ATTEND Surgery Plastic and Reconstructive Surgery
DX: K80.10 Calculus of gallbladder with chronic cholecystitis without obstruction (principal); K66.0 Peritoneal adhesions (postprocedural) (postinfection); K82.8 Other specified diseases of gallbladder; I11.9 Hypertensive heart disease without heart failure; I42.9 Cardiomyopathy, unspecified; J44.9 Chronic obstructive pulmonary disease, unspecified; R16.0 Hepatomegaly, not elsewhere classified; I25.10 Atherosclerotic heart disease of native coronary artery without angina pectoris; K21.9 Gastro-esophageal reflux disease without esophagitis; E78.5 Hyperlipidemia, unspecified; I25.2 Old myocardial infarction; Z95.5 Presence of coronary angioplasty implant and graft; Z87.891 Personal history of nicotine dependence; Z79.82 Long term (current) use of aspirin; Z79.51 Long term (current) use of inhaled steroids; Z79.899 Other long term (current) drug therapy; Z88.1 Allergy status to other antibiotic agents; Z88.5 Allergy status to narcotic agent; Z88.0 Allergy status to penicillin
CPT/HCPCS: 86900; 86901; 88304; 80053; 85025; 86850; 47562; J2250; J1644; J1100; J2710; J2405; J2001; J3010; J1580; J0330; J2704

== ENCOUNTER 2023-07-23 14:38 | Observation (INO) | payer MEDICARE ==
--- NOTE | 2023-07-23 14:59 | ED ---
General Adult HPI - General Stated complaint: Abd Pain Time Seen by Provider: 07/23/23 14:38 Source: patient, RN notes reviewed, old records reviewed - History of Present Illness Initial comments: Is a 77-year-old female who presents emergency Department complaining of intermittent abdominal pain in the suprapubic region both sides. Patient states it's been getting a little bit worse. Patient states right ear about a month a go did a CAT scan noted a non-millimeter UPJ stone and is nonobstructing. Patient denies any fever chills per patient denies any nausea vomiting. Patient denies any diarrhea. Patient states over the last month she occasionally has some hematuria and more recently the urine is considerably bloodier. Patient went back to the emergency department today at [facility] and he did another CAT scan in this stone remains in the same spot it still remains nonobstructing. Patient received pain medications and currently is pain-free. - Related Data Home Medications Medication Instructions Recorded Confirmed Albuterol Inhaler [Ventolin Hfa 1 - 2 puff INHALATION RT-Q6H PRN 08/03/16 10/03/17 Inhaler] Ascorbic Acid [Vitamin C] 500 mg PO BID 08/03/16 10/03/17 Aspirin [Adult Low Dose Aspirin EC] 81 mg PO DAILY 08/03/16 10/03/17 Cyanocobalamin [Vitamin B-12] 1,000 mg PO DAILY 08/03/16 10/03/17 Metoprolol Succinate (ER) [Toprol 25 mg PO DAILY 08/03/16 10/03/17 XL] Metoprolol Succinate (ER) [Toprol 50 mg PO HS 08/03/16 10/03/17 XL] Multivitamins, Thera [Multivitamin 1 tab PO DAILY 08/03/16 10/03/17 (formulary)] Tiotropium 18 Mcg/Puff [Spiriva] 1 cap INHALATION DAILY 08/03/16 10/03/17 Cholecalciferol [Vitamin D3 (25 1,000 unit PO DAILY 09/30/17 10/03/17 Mcg = 1000 Iu)] Previous Rx's Medication Instructions Recorded Ibuprofen [Motrin] 600 mg PO Q8HR PRN #20 tab 10/03/17 Allergies Allergy/AdvReac Type Severity Reaction Status Date / Time Penicillins Allergy Severe Anaphylaxis Verified 10/03/17 14:41 cefaclor [From Ceclor] Allergy Anaphylaxis Verified 10/03/17 09:59 hydrocodone [From Vicodin] AdvReac Confusion Verified 10/03/17 09:59 Review of Systems ROS Statement: Those systems with pertinent positive or pertinent negative responses have been documented in the HPI. ROS Other: All systems not noted in ROS Statement are negative. Past Medical History Past Medical History: Coronary Artery Disease (CAD), Chest Pain / Angina, COPD, GERD/Reflux, Hyperlipidemia, Hypertension, Myocardial Infarction ([place]), Pneumonia Additional Past Medical History / Comment(s): had stent placed in 2009 after [place] Last Myocardial Infarction Date:: 2009 History of Any Multi-Drug Resistant Organisms: None Reported Past Surgical History: Breast Surgery, Heart Catheterization With Stent, Hysterectomy, Tonsillectomy Additional Past Surgical History / Comment(s): cath with stent in 2009, benign breast biopsies, stomach tumor removal, small cancer removed from R upper lobe 2010. No radiation or chemo needed. Additional Past Anesthesia/Blood Transfusion Reaction / Comment(s): pt states blood pressure drops and that she takes a long time to come out of anesthesia Date of Last Stent Placement:: 2009 Past Psychological History: No Psychological Hx Reported Past Alcohol Use History: Occasional Additional Past Alcohol Use History / Comment(s): Quit 2016 Past Drug Use History: None Reported - Past Family History Father Family Medical History: Myocardial Infarction ([place]) Additional Family Medical History / Comment(s): at 73 from [place] Mother Family Medical History: Cancer, Myocardial Infarction ([place]) Additional Family Medical History / Comment(s): from lung cancer Sister(s) Family Medical History: Diabetes Mellitus Brother(s) Family Medical History: Diabetes Mellitus Daughter(s) Additional Family Medical History / Comment(s): was in a bad car accident and is addicted to prescription pills General Exam - General Exam Comments Initial Comments: GENERAL: Patient is well-developed and well-nourished. Patient is nontoxic and well- hydrated and is in no acute distress. ENT: Neck is soft and supple. No significant lymphadenopathy is noted. Oropharynx is clear. Moist mucous membranes. Neck has full range of motion without eliciting any pain. EYES: The sclera were anicteric and conjunctiva were pink and moist. Extraocular movements were intact and pupils were equal round and reactive to light. Eyelids were unremarkable. PULMONARY: Unlabored respirations. Good breath sounds bilaterally. No audible rales rhonchi or wheezing was noted. CARDIOVASCULAR: There is a regular rate and rhythm without any murmurs gallops or rubs. ABDOMEN: Patient's suprapubic region is mildly tender SKIN: Skin is clear with no lesions or rashes and otherwise unremarkable. NEUROLOGIC: Patient is alert and oriented x3. Cranial nerves II through XII are grossly intact. Motor and sensory are also intact. Normal speech, volume and content. Symmetrical smile. MUSCULOSKELETAL: Normal extremities with adequate strength and full range of motion. LYMPHATICS: No significant lymphadenopathy is noted PSYCHIATRIC: Normal psychiatric evaluation. Medical Decision Making - Medical Decision Making Was pt. sent in by a medical professional or institution (, PA, SUPERVISING FILM OR VIDEOTAPE EDITOR, urgent care, hospital, or alf...) When possible be specific @ -Patient was sent to us from [facility] Did you speak to anyone other than the patient for history (EMS, parent, family, police, friend...)? What history was obtained from this source @ -ER physician at [facility] gave us the history Did you review nursing and triage notes (agree or disagree)? Why? @ -I reviewed and agree with nursing and triage notes Were old charts reviewed (outside hosp., previous admission, EMS record, old EKG, old radiological studies, urgent care reports/EKG's, alf records)? Report findings @ -I reviewed charts the came with the patient and prior CAT scan results as well as prior lab work results Differential Diagnosis (chest pain, altered mental status, abdominal pain women, abdominal pain men, vaginal bleeding, weakness, fever, dyspnea, syncope, headache, dizziness, GI bleed, back pain, seizure, CVA, palpatations, mental health, musculoskeletal)? @ -Differential Abdominal Pain Women: Appendicitis, Cholecystitis, diverticulosis, ischemic bowel, pancreatitis, hepatitis, UTI, gastroenteritis, AAA, incarcerated hernia, bowel obstruction, constipation, inflammatory bowel, hepatitis, peptic ulcer disease, splenic infarction, perforated viscus, vulvitis, ovarian torsion, PID, kidney stone, tomás centa abruption, this is not meant to be an all-inclusive list EKG interpreted by me (3pts min.). @ -As above X-rays interpreted by me (1pt min.). @ -None done CT interpreted by me (1pt min.). @ -None done U/S interpreted by me (1pt. min.). @ -None done What testing was considered but not performed or refused? (CT, X-rays, U/S, labs)? Why? @ -None What meds were considered but not given or refused? Why? @ -None Did you discuss the management of the patient with other professionals (professionals i.e. Dr., PA, SUPERVISING FILM OR VIDEOTAPE EDITOR, lab, RT, psych nurse, clinical social work aide, bradder, teacher, pharmaceutical officer, clinical case manager)? Give summary @ - Dr. Griffin accepted the patient for admission Was smoking cessation discussed for >3mins.? @ -No Was critical care preformed (if so, how long)? @ -No Were there social determinants of health that impacted care today? How? (Homelessness, low income, unemployed, alcoholism, drug addiction, transportation, low edu. Level, literacy, decrease access to med. care, fpc, rehab)? @ -No Was there de-escalation of care discussed even if they declined (Discuss DNR or withdrawal of care, Hospice)? DNR status @ -No What co-morbidities impacted this encounter? (DM, HTN, Smoking, COPD, CAD, Cancer, CVA, ARF, Chemo, Hep., AIDS, mental health diagnosis, sleep apnea, morbid obesity)? @ -None Was patient admitted / discharged? Hospital course, mention meds given and route, prescriptions, significant lab abnormalities, going to OR and other pertinent info. @ -Patient was in no pain currently. She received pain medicine earlier. I spoke with Dr. Griffin he agreed to admit the patient admitted the patient wrote admitting orders Undiagnosed new problem with uncertain prognosis? @ -No Drug Therapy requiring intensive monitoring for toxicity (Heparin, Nitro, Insulin, Cardizem)? @ -No Were any procedures done? @ -No Diagnosis/symptom? @ -Hematuria Acute, or Chronic, or Acute on Chronic? @ -Acute Uncomplicated (without systemic symptoms) or Complicated (systemic symptoms)? @ -Complicated Side effects of treatment? @ -No Exacerbation, Progression, or Severe Exacerbation? @ -No Poses a threat to life or bodily function? How? (Chest pain, [place], [place], pneumonia, PE, COPD, DKA, ARF, appy, cholecystitis, CVA, Diverticulitis, Homicidal, Suicidal, threat to staff... and all critical care pts) @ -No Diagnosis/symptom? @ -Kidney stone Acute, or Chronic, or Acute on Chronic? @ -Acute Uncomplicated (without systemic symptoms) or Complicated (systemic symptoms)? @ -Complicated Side effects of treatment? @ -none Exacerbation, Progression, or Severe Exacerbation] @ -no Poses a threat to life or bodily function? @ -no Disposition Clinical Impression: Hematuria, Kidney stones Disposition: ADMITTED IP TO THIS HOSP Referrals: Coy Franklin MD [Primary Care Provider] - 1-2 days Time of Disposition: 14:56
[2023-07-23] MEDS ORDERED: FUROSEMIDE 10 MG/ML 2 ML VIAL IV ONE (15:32)
[2023-07-23] MEDS ORDERED: IPRATROPIUM-ALBUTEROL 3 ML NEB INHALATION STA (15:33)
[2023-07-23] MEDS ORDERED: SODIUM CHLORIDE 0.9% 1,000 ML IV ONE (15:36)
--- NOTE | 2023-07-23 17:35 | P.GSHP ---
History of Present Illness H&P Date: 07/23/23 Chief Complaint: Left renal stone This is a 77-year-old female that presented as a transfer from [place] for a 9 mm left-sided UPJ stone. She's been having intractable pain secondary to the stone, indicates the pain is in the bilateral flank with radiation to the suprapubic area, but is more severe on the left. Denies any dysuria or voiding issues. She is complaining of a hematuria in association with the pain. Denies any nausea or vomiting. She was seen at [place] [facility] approximately a month ago and at that time underwent a CT which showed a 9 mm left-sided UVJ stone, repeat CT on presentation showed persistent stone. No previous history of kidney stones. Her CT did not show any additional findings. - Constitutional Constitutional: Denies chills, Denies fever - EENT Ears, nose, mouth and throat: Denies headache, Denies sore throat - Cardiovascular Cardiovascular: Denies chest pain, Denies shortness of breath - Respiratory Respiratory: Denies cough, Denies 7 - Gastrointestinal Gastrointestinal: Reports abdominal pain, Reports nausea, Reports vomiting - Genitourinary (Female) Genitourinary: Reports flank pain, Reports hematuria, Denies dysuria Past Medical History Past Medical History: Coronary Artery Disease (CAD), Chest Pain / Angina, COPD, GERD/Reflux, Hyperlipidemia, Hypertension, Myocardial Infarction ([place]), Pneumonia Additional Past Medical History / Comment(s): had stent placed in 2009 after [place] Last Myocardial Infarction Date:: 2009 History of Any Multi-Drug Resistant Organisms: None Reported Past Surgical History: Breast Surgery, Heart Catheterization With Stent, Hysterectomy, Tonsillectomy Additional Past Surgical History / Comment(s): cath with stent in 2009, benign breast biopsies, stomach tumor removal, small cancer removed from R upper lobe 2010. No radiation or chemo needed. Additional Past Anesthesia/Blood Transfusion Reaction / Comment(s): pt states blood pressure drops and that she takes a long time to come out of anesthesia Date of Last Stent Placement:: 2009 Past Psychological History: No Psychological Hx Reported Past Alcohol Use History: Occasional Additional Past Alcohol Use History / Comment(s): Quit 2016 Past Drug Use History: None Reported - Past Family History Father Family Medical History: Myocardial Infarction ([place]) Additional Family Medical History / Comment(s): at 73 from [place] Mother Family Medical History: Cancer, Myocardial Infarction ([place]) Additional Family Medical History / Comment(s): from lung cancer Sister(s) Family Medical History: Diabetes Mellitus Brother(s) Family Medical History: Diabetes Mellitus Daughter(s) Additional Family Medical History / Comment(s): was in a bad car accident and is addicted to prescription pills Medications and Allergies Home Medications Medication Instructions Recorded Confirmed Type Albuterol Inhaler [Ventolin Hfa 1 - 2 puff INHALATION RT-Q6H PRN 08/03/16 07/23/23 History Inhaler] Ascorbic Acid [Vitamin C] 500 mg PO BID 08/03/16 07/23/23 History Aspirin [Adult Low Dose Aspirin EC] 81 mg PO DAILY 08/03/16 07/23/23 History Metoprolol Succinate (ER) [Toprol 50 mg PO DIRECTED 08/03/16 07/23/23 History XL] Budesonide [Pulmicort] 0.5 mg INHALATION RT-Q12H 07/23/23 07/23/23 History Calcium Carbonate/Vitamin D3 1 tab PO DAILY 07/23/23 07/23/23 History [Calcium 600-Vit D3 10 mcg (400 Iu)] Cyanocobalamin (Vitamin B-12) 1,000 mcg PO DAILY 07/23/23 07/23/23 History [Vitamin B-12] Docusate [Colace] 100 mg PO DAILY 07/23/23 07/23/23 History Famotidine [Pepcid] 40 mg PO DAILY 07/23/23 07/23/23 History HYDROcodone/APAP 10-325MG [[place] 1 tab PO Q8H PRN 07/23/23 07/23/23 History 10-325] Ipratropium-Albuterol Nebulize 3 ml INHALATION RT-Q4H PRN 07/23/23 07/23/23 History [Duoneb 0.5 mg-3 mg/3 ml Soln] L.acidoph,Paracasei, B.lactis 1 cap PO DAILY 07/23/23 07/23/23 History [Probiotic] Magnesium Oxide [Magnesium] 500 mg PO DAILY 07/23/23 07/23/23 History Metoprolol Succinate [Toprol XL] 25 mg PO DIRECTED 07/23/23 07/23/23 History Montelukast [Singulair] 10 mg PO HS 07/23/23 07/23/23 History Pantoprazole Sodium [Protonix] 40 mg PO DIRECTED 07/23/23 07/23/23 History Rosuvastatin [Crestor] 10 mg PO DIRECTED 07/23/23 07/23/23 History Zinc Gluconate [Zinc] 50 mg PO DAILY 07/23/23 07/23/23 History predniSONE See Taper PO DIRECTED 07/23/23 07/23/23 History Allergies Allergy/AdvReac Type Severity Reaction Status Date / Time Penicillins Allergy Severe Anaphylaxis Verified 07/23/23 16:23 cefaclor [From Ceclor] Allergy Anaphylaxis Verified 07/23/23 16:23 hydrocodone [From Vicodin] AdvReac Confusion Verified 07/23/23 16:23 Surgical - Exam Vital Signs Temp Pulse Resp BP Pulse Ox 98.1 F 95 18 159/94 99 07/23/23 14:41 07/23/23 14:41 07/23/23 14:41 07/23/23 14:41 07/23/23 14:41 - General no distress, moderate pain - Eyes normal ocular movement, no pale - ENT normal nares, normal mucosa - Respiratory normal expansion, normal respiratory effort - Abdomen Abdomen: soft, non tender - Psychiatric oriented to time, oriented to place Assessment and Plan Assessment: 77-year-old female with hx of 9 mm left sided UPJ stone. Discussed with her her pain is most likely secondary to her stone but there is potential that her suprapubic pain and right flank pain is not associated with the stone. But discussed with her given her persistent symptoms I do recommend proceeding with surgical intervention. Option of left-sided ureteroscopy with holmium laser was discussed with her. Risk benefits and rationale was discussed with her in detail
[2023-07-23] MEDS: HYDROcodone/APAP 10-325MG 1 EACH TAB PO PRN (21:09)
[2023-07-23] MEDS: MONTELUKAST 10 MG TAB PO SCH (21:10)
--- NOTE | 2023-07-23 22:05 | P.CONS ---
History of Present Illness - Reason for Consult Consult date: 07/23/23 - History of Present Illness Patient is a 77-year-old female with a PMH of COPD with chronic hypoxic respiratory failure on 2 L nasal cannula oxygen at home, CAD, hypertension, hyperlipidemia, who was transferred to our facility from [facility] with the patient had presented with complaints of abdominal pain and hematuria. Patient reportedly was previously seen at [facility] roughly a month ago for similar complaints when a CT abdomen showed a 9 mm UPJ stone. The patient underwent repeat testing today which also revealed the same stone. She was admitted to the urology service with plans of left-sided ureteroscopy with lithotripsy tomorrow. At time of interview, the patient notes her pain has improved, rated at a 3 out of 10, in her suprapubic region and radiating into her back bilaterally. Denies experiencing fever, chills, nausea, vomiting, diarrhea. The patient underwent an extensive evaluation at [facility] which was all reviewed with CT abdomen and pelvis without contrast showing a large 9 mm nonobstructing stone at the right UPJ without evidence of hydronephrosis. Laboratory evaluation revealed WBC count 13.2, hemoglobin 14.8, platelets 146, BUN 22, creatinine 0.9, glucose 137, sodium 143, potassium 3.8, and total bilirubin 1.4. ED documentation reviewed and case discussed with ED provider. Review of systems: Pertinent positives and negatives as discussed in HPI, a complete review of systems was performed and all other systems are negative. Physical examination: Vital signs reviewed General: non toxic, no distress, appears at stated age, overweight Derm: no unusual rashes/lesions, warm Head: atraumatic, normocephalic, symmetric Eyes: EOMI, no lid lag, anicteric sclera, pupils equal round reactive to light ENT: Nose and ears atraumatic Neck: No cervical lymphadenopathy, trachea midline, supple Mouth: no lip lesion, mucus membranes moist Cardiovascular: S1S2 reg, no murmur, positive dorsalis pedis pulse bilateral, no edema Lungs: CTA bilateral, no rhonchi, no rales, no accessory muscle use Abdominal: soft, mild suprapubic tenderness, no guarding Ext: muscle strength 5 out of 5 in all 4 extremities grossly, no gross muscle atrophy, no contractures, Neuro: CN II-XI grossly intact, no gross focal neuro deficits Psych: Alert, oriented, appropriate affect Assessment: Right sided 9-mm UPJ stone Chronic conditions: COPD, CAD, hypertension, hyperlipidemia Imaging: CT abdomen and pelvis without contrast showing a large 9 mm nonobstructing stone at the right UPJ without evidence of hydronephrosis. Data Review: Laboratory evaluation revealed WBC count 13.2, hemoglobin 14.8, platelets 146, BUN 22, creatinine 0.9, glucose 137, sodium 143, potassium 3.8, and total bilirubin 1.4. Plan: Scheduled for left ureteroscopy with lithotripsy tomorrow Continue home medications including aspirin, Toprol, Singulair, Pulmicort, and Crestor Lovenox Subq for DVT prophylaxis Past Medical History Past Medical History: Coronary Artery Disease (CAD), Chest Pain / Angina, COPD, GERD/Reflux, Hyperlipidemia, Hypertension, Myocardial Infarction (MS), Pneumonia Additional Past Medical History / Comment(s): had stent placed in 2009 after MS Last Myocardial Infarction Date:: 2009 History of Any Multi-Drug Resistant Organisms: None Reported Past Surgical History: Breast Surgery, Heart Catheterization With Stent, Hysterectomy, Tonsillectomy Additional Past Surgical History / Comment(s): cath with stent in 2009, benign breast biopsies, stomach tumor removal, small cancer removed from R upper lobe 2010. No radiation or chemo needed. Additional Past Anesthesia/Blood Transfusion Reaction / Comm: pt states blood pressure drops and that she takes a long time to come out of anesthesia Date of Last Stent Placement:: 2009 Past Psychological History: No Psychological Hx Reported Past Alcohol Use History: Occasional Additional Past Alcohol Use History / Comment(s): Quit 2016 Past Drug Use History: None Reported - Past Family History Father Family Medical History: Myocardial Infarction (MS) Additional Family Medical History / Comment(s): at 73 from MS Mother Family Medical History: Cancer, Myocardial Infarction (MS) Additional Family Medical History / Comment(s): from lung cancer Sister(s) Family Medical History: Diabetes Mellitus Brother(s) Family Medical History: Diabetes Mellitus Daughter(s) Additional Family Medical History / Comment(s): was in a bad car accident and is addicted to prescription pills Medications and Allergies Home Medications Medication Instructions Recorded Confirmed Type Albuterol Inhaler [Ventolin Hfa 1 - 2 puff INHALATION RT-Q6H PRN 08/03/16 07/23/23 History Inhaler] Ascorbic Acid [Vitamin C] 500 mg PO BID 08/03/16 07/23/23 History Aspirin [Adult Low Dose Aspirin EC] 81 mg PO DAILY 08/03/16 07/23/23 History Metoprolol Succinate (ER) [Toprol 50 mg PO DIRECTED 08/03/16 07/23/23 History XL] Budesonide [Pulmicort] 0.5 mg INHALATION RT-Q12H 07/23/23 07/23/23 History Calcium Carbonate/Vitamin D3 1 tab PO DAILY 07/23/23 07/23/23 History [Calcium 600-Vit D3 10 mcg (400 Iu)] Cyanocobalamin (Vitamin B-12) 1,000 mcg PO DAILY 07/23/23 07/23/23 History [Vitamin B-12] Docusate [Colace] 100 mg PO DAILY 07/23/23 07/23/23 History Famotidine [Pepcid] 40 mg PO DAILY 07/23/23 07/23/23 History HYDROcodone/APAP 10-325MG [[place] 1 tab PO Q8H PRN 07/23/23 07/23/23 History 10-325] Ipratropium-Albuterol Nebulize 3 ml INHALATION RT-Q4H PRN 07/23/23 07/23/23 History [Duoneb 0.5 mg-3 mg/3 ml Soln] L.acidoph,Paracasei, B.lactis 1 cap PO DAILY 07/23/23 07/23/23 History [Probiotic] Magnesium Oxide [Magnesium] 500 mg PO DAILY 07/23/23 07/23/23 History Metoprolol Succinate [Toprol XL] 25 mg PO DIRECTED 07/23/23 07/23/23 History Montelukast [Singulair] 10 mg PO HS 07/23/23 07/23/23 History Pantoprazole Sodium [Protonix] 40 mg PO DIRECTED 07/23/23 07/23/23 History Rosuvastatin [Crestor] 10 mg PO DIRECTED 07/23/23 07/23/23 History Zinc Gluconate [Zinc] 50 mg PO DAILY 07/23/23 07/23/23 History predniSONE See Taper PO DIRECTED 07/23/23 07/23/23 History Allergies Allergy/AdvReac Type Severity Reaction Status Date / Time Penicillins Allergy Severe Anaphylaxis Verified 07/23/23 16:23 cefaclor [From Ceclor] Allergy Anaphylaxis Verified 07/23/23 16:23 hydrocodone [From Vicodin] AdvReac Confusion Verified 07/23/23 16:23 Physical Exam Vitals: Vital Signs Temp Pulse Resp BP Pulse Ox 07/23/23 21:08 91 20 175/91 95 07/23/23 17:30 94 18 148/79 99 07/23/23 16:18 96 07/23/23 16:09 94 07/23/23 14:41 98.1 F 95 18 159/94 99 Intake and Output 07/23/23 07/23/23 07/23/23 06:59 14:59 22:59 Other: Weight 77.564 kg
[2023-07-23] MEDS: METOPROLOL SUCCINATE (ER) 50 MG TAB.ER.24H PO SCH (23:02)
[2023-07-24] MEDS: IPRATROPIUM-ALBUTEROL 3 ML NEB INHALATION PRN ×4 (05:01→18:19)
[2023-07-24 05:31] LABS: HCT 38.6 % (34.0-46.0); HGB 12.9 gm/dL (11.4-16.0); MCH 33.7 pg (25.0-35.0); MCHC 33.4 g/dL (31.0-37.0); MCV 100.9 fL (80.0-100.0); Macrocytosis Slight; Mean Platelet Volume 8.2; Platelet Count 124 k/uL (150-450); RBC 3.82 m/uL (3.80-5.40); RDW 14.2 % (11.5-15.5); WBC 9.2 k/uL (3.8-10.6)
[2023-07-24 05:49] LABS: ALT 29 U/L (4-34); AST 26 U/L (14-36); African American GFR (CKD) >90 (>60 ml/min/1.73 sqM); Albumin 3.2 g/dL (3.5-5.0); Albumin/Globulin Ratio 1.5; Alkaline Phosphatase 48 U/L (38-126); Anion Gap 5 mmol/L; Blood Urea Nitrogen 19 mg/dL (7-17); Carbon Dioxide 33 mmol/L (22-30); Chloride 103 mmol/L (98-107); Globulin 2.1 g/dL; Glucose 78 mg/dL (74-99); Non-African American GFR(CKD) >90 (>60 ml/min/1.73 sqM); Potassium 3.7 mmol/L (3.5-5.1); Sodium 141 mmol/L (137-145); Total Bilirubin 0.9 mg/dL (0.2-1.3); Total Protein 5.3 g/dL (6.3-8.2)
[2023-07-24] MEDS: HYDROcodone/APAP 10-325MG 1 EACH TAB PO PRN ×2 (07:50→18:41)
[2023-07-24] MEDS ORDERED: IV FLUID CONTINUATION 1,000 ML IV ONE (13:48)
[2023-07-24] MEDS ORDERED: ONDANSETRON 4 MG/2 ML VIAL ONE (14:05)
[2023-07-24] MEDS ORDERED: DEXAMETHASONE SOD PHOSPHATE 4 MG/ML 1 ML VIAL IVP ONE (14:08)
[2023-07-24] MEDS ORDERED: ONDANSETRON 4 MG/2 ML VIAL IVP ONE (14:09)
[2023-07-24] MEDS ORDERED: LIDOCAINE 1% INJ 10MG/ML (20 ML MDV) ONE (14:30)
[2023-07-24] MEDS ORDERED: PHENYLEPHRINE-0.9% NACL SYG 1,000 MCG/10 ML SYRINGE ONE (14:30)
[2023-07-24] MEDS ORDERED: PROPOFOL 10 MG/ML 20 ML VIAL IV ONE (14:30)
[2023-07-24] MEDS ORDERED: fentaNYL (PF) 50 MCG/ML 2 ML AMP ONE (14:30)
--- NOTE | 2023-07-24 15:56 | P.PN ---
Subjective Progress Note Date: 07/24/23 Subjective: Patient seen and examined at bedside. No acute events overnight. Continues to have flank and abdominal pain. Pertinent positives and negatives as discussed above, a complete review of systems was performed and all other systems are negative. Vitals Signs Reviewed. General: nontoxic, no distress, appears at stated age Derm: warm, dry Head: atraumatic, normocephalic, symmetric Eyes: EOMI, no lid lag, anicteric sclera Mouth: no lip lesion, mucus membranes moist Cardiovascular: S1S2 reg, no murmur Lungs: CTA bilateral, no rhonchi, no rales , no accessory muscle use Abdominal: soft, nontender to palpation, no guarding, no appreciable organomegaly Ext: no gross muscle atrophy, no edema, no contractures Neuro: CN II-XI grossly intact, no focal neuro deficits Psych: Alert, oriented, appropriate affect Data Reviewed Today: Pertinent Labs: WBC 9.2, hemoglobin 12.9, platelet 124, creatinine 0.58 Imaging: no new imaging. Assessment and Plan: Active: Right sided 9-mm UPJ stone Hypertension Dyslipidemia COPD, not in exacerbation CAD GERD -Patient pending surgical intervention -Continue metoprolol 25 daily, 50 at night, continue rosuvastatin 10, pantoprazole 40 at night, famotidine 40 daily, Pulmicort twice a day, Singulair 10 -On, not quite as needed for pain control, monitor for respiratory depression -Repeat CBC and BMP tomorrow -DVT prophylaxis per urology Thank you for allowing us to participate in the care of this pleasant patient. Do not hesitate to contact us with questions. Someone can be reached from the [facility] hospitalist group all hours of the day at [phone] or via perfect serve. Objective - Vital Signs Vital signs: Vital Signs Temp 97.6 F 07/24/23 13:54 Pulse 89 07/24/23 13:54 Resp 16 07/24/23 13:54 BP 126/67 07/24/23 13:54 Pulse Ox 98 07/24/23 13:54 FiO2 Intake & Output 07/23/23 07/24/23 07/24/23 18:59 06:59 18:59 Intake Total 600 Output Total 5 Balance 595 Weight 77.564 kg Intake: IV 600 Output: Estimated Blood Loss 5 Other: Voiding Method Toilet # Voids 1 - Labs CBC & Chem 7: 07/24/23 05:16 07/24/23 05:16 Labs: Abnormal Lab Results - Last 24 Hours (Table) 07/24/23 07/24/23 Range/Units 05:16 05:16 MCV 100.9 H (80.0-100.0) fL Plt Count 124 L (150-450) k/uL Carbon Dioxide 33 H (22-30) mmol/L BUN 19 H (7-17) mg/dL Calcium 8.0 L (8.4-10.2) mg/dL Total Protein 5.3 L (6.3-8.2) g/dL Albumin 3.2 L (3.5-5.0) g/dL
--- NOTE | 2023-07-24 16:12 | FL ---
EXAMINATION TYPE: FL guidance operating room DATE OF EXAM: 07/24/2023 CLINICAL HISTORY: Renal stone TECHNIQUE: Fluoroscopy. COMPARISON: Outside CT from one day earlier FINDINGS: Fluoroscopic guidance was provided during stone treatment procedure performed by Dr. Brenda aguillon A total of 45.2 seconds of fluoroscopic time was utilized during the procedure and 1 spot image i s acquired. Single image acquired shows portion of proximal guidewire or stent. TOTAL DAP = 4.7236 Gy x cm2. IMPRESSION: As Above.
[2023-07-24] MEDS ORDERED: HYDROmorphone 0.5 MG/0.5 ML SYRINGE IVP ONE (16:35)
--- NOTE | 2023-07-24 17:25 | P.PN ---
Subjective Progress Note Date: 07/24/23 No acute overnight events, continues to have bilateral flank pain Objective - Vital Signs Vital signs: Vital Signs Temp 97 F L 07/24/23 15:56 Pulse 85 07/24/23 16:43 Resp 19 07/24/23 16:43 BP 148/75 07/24/23 16:43 Pulse Ox 95 07/24/23 16:43 FiO2 Intake & Output 07/23/23 07/24/23 07/24/23 18:59 06:59 18:59 Intake Total 600 Output Total 5 Balance 595 Weight 77.564 kg Intake: IV 600 Output: Estimated Blood Loss 5 Other: Voiding Method Toilet # Voids 1 - Gastrointestinal General gastrointestinal: Present: soft. Absent: distended, tenderness - Psychiatric Psychiatric: Present: A&O x's 3 - Labs CBC & Chem 7: 07/24/23 05:16 07/24/23 05:16 Labs: Abnormal Lab Results - Last 24 Hours (Table) 07/24/23 07/24/23 Range/Units 05:16 05:16 MCV 100.9 H (80.0-100.0) fL Plt Count 124 L (150-450) k/uL Carbon Dioxide 33 H (22-30) mmol/L BUN 19 H (7-17) mg/dL Calcium 8.0 L (8.4-10.2) mg/dL Total Protein 5.3 L (6.3-8.2) g/dL Albumin 3.2 L (3.5-5.0) g/dL Assessment and Plan Assessment: 77-year-old female with hx of 9 mm left sided UPJ stone. Discussed with her her pain is most likely secondary to her stone but there is potential that her suprapubic pain and right flank pain is not associated with the stone. But discussed with her given her persistent symptoms I do recommend proceeding with surgical intervention. Option of left-sided ureteroscopy with holmium laser was discussed with her. Risk benefits and rationale was discussed with her in detail -Or for left-sided ureteroscopy with holmium laser
--- NOTE | 2023-07-24 17:33 | P.OP ---
Date of Procedure: 07/24/23 Preoperative Diagnosis: Left renal stone, bilateral flank pain Postoperative Diagnosis: Right renal stone Procedure(s) Performed: Cystoscopy, bilateral ureteroscopy, right holmium laser lithotripsy, stone basketing and bilateral stent insertion Implants: 6-Yemeni by 26 cm stent in the bilateral ureters Anesthesia: GUERA Surgeon: Ramu Griffin Estimated Blood Loss (ml): 5 Pathology: other (Right renal stone) Condition: stable Disposition: PACU Indications for Procedure: This is a 77-year-old female that presented as a transfer from [place] for a 9 mm left-sided UPJ stone. She's been having intractable pain secondary to the stone, indicates the pain is in the bilateral flank with radiation to the suprapubic area, but is more severe on the left. Denies any dysuria or voiding issues. She is complaining of a hematuria in association with the pain. Denies any nausea or vomiting. She was seen at [place] [facility] approximately a month ago and at that time underwent a CT which showed a 9 mm left-sided UVJ stone, repeat CT on presentation showed persistent stone. No previous history of kidney stones. Her CT did not show any additional findings.. Operative Findings: No left-sided renal stone, right-sided radiopaque renal stone Description of Procedure: Patient brought to the operating room, general anesthesia was induced. She was prepped and draped in sterile fashion and placed in dorsal lithotomy position. Cystoscopy fitted with 21-Yemeni sheath was inserted per urethra, cystoscopy was performed which showed no abnormality within the bladder attention was then carried to the left ureteral orifice which was intubated with a sensor wire. Next under fluoroscopy 1113 [place]i access sheath was passed over the wire. Next a flexible ureteroscope was inserted through the access sheath, a complete renoscopy was performed which showed no stone in the left kidney, all calyces were evaluated, on on fluoroscopy there was no radiopaque densities. At this time pullback ureteroscopy was performed which showed no injury to the ureter or any ureteral stones, as ureteroscope was withdrawn and a sensor wire was advanced through. Next a ureteral stent was passed over the wire, the proximal curl was visualized on fluoroscopy and the distal curl was visualized using the cystoscope. This time a decision was made to obtain an fluoro image of the right kidney given the patient's bilateral flank pain, there was evidence of a radiopaque right-sided renal stone. . Images were not available for me to review, as her CT was at [place]. At this time given the finding of the radiopaque stone on the right and no stone on the left decision was made to proceed with right-sided ureteroscopy. additionally patient is having symptomatic bilateral flank pain and gross hematuria. Given thisdecision was made to proceed with right-sided ureteroscopy with holmium laser. At this time a sensor wire was advanced through the cystoscope and up the right ureteral orifice to the kidney. Next a 1113 [place]i access sheath was passed over the wire and into the proximal ureter. Next a flexible ureteroscope was inserted through the access sheath, a large stone was encountered at the UPJ. Using the holmium laser the stone was dusted, sizable stone fragments were removed using the stone basket. Repeat renoscopy showed no sizable stones or injury to the kidney. On fluoroscopy there was no additional radiopaque densities, pullback ureteroscopy was performed which showed no injury to the ureter or any ureteral stones, as ureteroscope was withdrawn a sensor wire was advanced through. Next a ureteral stent was passed over the wire, the proximal curl was visualized on fluoroscopy and the distal curl was visualized and cystoscope. The bladder was emptied at the end of the case. Patient tolerated procedure well taken to recovery in stable condition
[2023-07-24] MEDS: BUDESONIDE 0.5 MG/2 ML NEBU INHALATION SCH (18:19)
[2023-07-24] MEDS: METOPROLOL SUCCINATE (ER) 50 MG TAB.ER.24H PO SCH (20:32)
[2023-07-24] MEDS: MONTELUKAST 10 MG TAB PO SCH (20:32)
[2023-07-24] MEDS ORDERED: PANTOPRAZOLE 40 MG TABLET PO SCH (21:00)
[2023-07-24] MEDS ORDERED: ATORVASTATIN 20 MG TAB PO SCH (21:00)
[2023-07-24] MEDS ORDERED: MORPHINE SULFATE 2 MG/ML SYRINGE IVP STA (22:53)
[2023-07-25] MEDS ORDERED: MORPHINE SULFATE 2 MG/ML SYRINGE IVP STA (01:29)
[2023-07-25 02:53] VITALS: RESP 16
[2023-07-25] MEDS: HYDROcodone/APAP 10-325MG 1 EACH TAB PO PRN (06:01)
[2023-07-25 06:26] LABS: Basophils % (A) 0 %; Eosinophils % (A) 0 %; HCT 40.2 % (34.0-46.0); HGB 13.1 gm/dL (11.4-16.0); Lymphocytes # (A) 0.5 k/uL (1.0-4.8); Lymphocytes % (A) 5 %; MCH 33.5 pg (25.0-35.0); MCHC 32.7 g/dL (31.0-37.0); MCV 102.7 fL (80.0-100.0); Macrocytosis Slight; Mean Platelet Volume 7.3; Monocytes # (A) 0.6 k/uL (0-1.0); Monocytes % (A) 5 %; Neutrophils # (A) 9.8 k/uL (1.3-7.7); Neutrophils % (A) 89 %; Platelet Count 142 k/uL (150-450); RBC 3.92 m/uL (3.80-5.40); RDW 13.8 % (11.5-15.5)
[2023-07-25 06:35] LABS: African American GFR (CKD) >90 (>60 ml/min/1.73 sqM); Anion Gap 5 mmol/L; Blood Urea Nitrogen 13 mg/dL (7-17); Carbon Dioxide 32 mmol/L (22-30); Chloride 102 mmol/L (98-107); Glucose 107 mg/dL (74-99); Non-African American GFR(CKD) >90 (>60 ml/min/1.73 sqM); Sodium 139 mmol/L (137-145)
[2023-07-25 08:42] VITALS: BP 131/81; TEMP 98.7
[2023-07-25] MEDS ORDERED: FAMOTIDINE 20 MG TAB PO SCH (09:00)
[2023-07-25] MEDS ORDERED: METOPROLOL SUCCINATE (ER) 25 MG TAB.ER.24H PO SCH (09:00)
[2023-07-25] MEDS: BUDESONIDE 0.5 MG/2 ML NEBU INHALATION SCH (09:15)
[2023-07-25] MEDS: IPRATROPIUM-ALBUTEROL 3 ML NEB INHALATION PRN ×2 (09:15→12:04)
--- NOTE | 2023-07-25 11:34 | P.PN ---
Subjective Progress Note Date: 07/25/23 Subjective: Patient seen and examined at bedside. No acute events overnight. Feeling a lot better today Pertinent positives and negatives as discussed above, a complete review of rosy mitchell was performed and all other systems are negative. Vitals Signs Reviewed. General: nontoxic, no distress, appears at stated age Derm: warm, dry Head: atraumatic, normocephalic, symmetric Eyes: EOMI, no lid lag, anicteric sclera Mouth: no lip lesion, mucus membranes moist Cardiovascular: S1S2 reg, no murmur Lungs: CTA bilateral, no rhonchi, no rales , no accessory muscle use Abdominal: soft, nontender to palpation, no guarding, no appreciable organomegaly Ext: no gross muscle atrophy, no edema, no contractures Neuro: CN II-XI grossly intact, no focal neuro deficits Psych: Alert, oriented, appropriate affect Data Reviewed Today: Pertinent Labs: WBC 11, platelets 142, creatinine 0.57 Imaging: no new imaging. Assessment and Plan: Active: Right sided 9-mm UPJ stone status post lithotripsy, stone basketing, bilateral stent insertion. Hypertension Dyslipidemia COPD, not in exacerbation CAD GERD -Continue metoprolol 25 daily, 50 at night, continue rosuvastatin 10, pantoprazole 40 at night, famotidine 40 daily, Pulmicort twice a day, Singulair 10 -On norco as needed for pain control, monitor for respiratory depression -DVT prophylaxis per urology Patient is otherwise medically optimized for discharge, home medications reconciled. Thank you for allowing us to participate in the care of this pleasant patient. Do not hesitate to contact us with questions. Someone can be reached from the [facility] hospitalist group all hours of the day at [phone] or via perfect serve. Objective - Vital Signs Vital signs: Vital Signs Temp 98.7 F 07/25/23 07:00 Pulse 80 07/25/23 09:31 Resp 16 07/25/23 07:00 BP 131/81 07/25/23 07:00 Pulse Ox 96 07/25/23 09:15 FiO2 Intake & Output 07/24/23 07/25/23 07/25/23 18:59 06:59 18:59 Intake Total 600 240 Output Total 5 Balance 595 240 Intake: IV 600 Oral 240 Output: Estimated Blood Loss 5 Other: Voiding Method Toilet Toilet # Voids 3 - Labs CBC & Chem 7: 07/25/23 05:44 07/25/23 05:44 Labs: Abnormal Lab Results - Last 24 Hours (Table) 07/25/23 07/25/23 Range/Units 05:44 05:44 WBC 11.0 H (3.8-10.6) k/uL MCV 102.7 H (80.0-100.0) fL Plt Count 142 L (150-450) k/uL Neutrophils # 9.8 H (1.3-7.7) k/uL Lymphocytes # 0.5 L (1.0-4.8) k/uL Carbon Dioxide 32 H (22-30) mmol/L Glucose 107 H (74-99) mg/dL Calcium 8.0 L (8.4-10.2) mg/dL
[2023-07-25 12:22] VITALS: PULSE 84
--- NOTE | 2023-07-25 15:24 | P.DS ---
Providers Date of admission: 07/23/23 15:36 Attending physician: Ramu Griffin MD Consults: 07/23/23 17:45 Consult Physician Routine Consulting Provider: Manjeet Physician Consult Reason/Comments: Medical Management Do you want consulting provider notified?: Yes Primary care physician: Coy Franklin MD Hospital Course: This is a 77-year-old female with history of a renal stone. She is presented as a transfer with bilateral flank pain. Underwent bilateral ureteroscopy with right-sided holmium laser lithotripsy on July 24. Patient did well in the postoperative period. She was discharged home on postop day #1, at time of discharge she was tolerating a diet, and bleeding, pain was controlled Plan - Discharge Summary Discharge Rx Participant: No New Discharge Prescriptions: New Ciprofloxacin HCl [Cipro] 250 mg PO Q12HR #10 tablet Ketorolac [Toradol] 10 mg PO Q6HR PRN #15 tab PRN Reason: Pain Continue Metoprolol Succinate (ER) [Toprol XL] 50 mg PO HS Aspirin [Adult Low Dose Aspirin EC] 81 mg PO DAILY Ascorbic Acid [Vitamin C] 500 mg PO BID Albuterol Inhaler [Ventolin Hfa Inhaler] 1 - 2 puff INHALATION RT-Q6H PRN PRN Reason: Shortness Of Breath Ipratropium-Albuterol Nebulize [Duoneb 0.5 mg-3 mg/3 ml Soln] 3 ml INHALATION RT-Q4H PRN PRN Reason: COPD Pantoprazole Sodium [Protonix] 40 mg PO HS Rosuvastatin [Crestor] 10 mg PO HS Metoprolol Succinate [Toprol XL] 25 mg PO DAILY Budesonide [Pulmicort] 0.5 mg INHALATION RT-Q12H Calcium Carbonate/Vitamin D3 [Calcium 600-Vit D3 10 mcg (400 Iu)] 1 tab PO DAILY Cyanocobalamin (Vitamin B-12) [Vitamin B-12] 1,000 mcg PO DAILY Docusate [Colace] 100 mg PO DAILY Famotidine [Pepcid] 40 mg PO DAILY HYDROcodone/APAP 10-325MG [[place] 10-325] 1 tab PO Q8H PRN PRN Reason: Pain L.acidoph,Paracasei, B.lactis [Probiotic] 1 cap PO DAILY Magnesium Oxide [Magnesium] 500 mg PO DAILY Montelukast [Singulair] 10 mg PO HS Zinc Gluconate [Zinc] 50 mg PO DAILY Discontinued predniSONE See Taper PO DIRECTED Discharge Medication List Albuterol Inhaler [Ventolin Hfa Inhaler] 1 - 2 puff INHALATION RT-Q6H PRN 08/03/16 [History] Ascorbic Acid [Vitamin C] 500 mg PO BID 08/03/16 [History] Aspirin [Adult Low Dose Aspirin EC] 81 mg PO DAILY 08/03/16 [History] Metoprolol Succinate (ER) [Toprol XL] 50 mg PO HS 08/03/16 [History] Budesonide [Pulmicort] 0.5 mg INHALATION RT-Q12H 07/23/23 [History] Calcium Carbonate/Vitamin D3 [Calcium 600-Vit D3 10 mcg (400 Iu)] 1 tab PO DAILY 07/23/23 [History] Cyanocobalamin (Vitamin B-12) [Vitamin B-12] 1,000 mcg PO DAILY 07/23/23 [History] Docusate [Colace] 100 mg PO DAILY 07/23/23 [History] Famotidine [Pepcid] 40 mg PO DAILY 07/23/23 [History] HYDROcodone/APAP 10-325MG [[place] 10-325] 1 tab PO Q8H PRN 07/23/23 [History] Ipratropium-Albuterol Nebulize [Duoneb 0.5 mg-3 mg/3 ml Soln] 3 ml INHALATION RT-Q4H PRN 07/23/23 [History] L.acidoph,Paracasei, B.lactis [Probiotic] 1 cap PO DAILY 07/23/23 [History] Magnesium Oxide [Magnesium] 500 mg PO DAILY 07/23/23 [History] Metoprolol Succinate [Toprol XL] 25 mg PO DAILY 07/23/23 [History] Montelukast [Singulair] 10 mg PO HS 07/23/23 [History] Pantoprazole Sodium [Protonix] 40 mg PO HS 07/23/23 [History] Rosuvastatin [Crestor] 10 mg PO HS 07/23/23 [History] Zinc Gluconate [Zinc] 50 mg PO DAILY 07/23/23 [History] Ciprofloxacin HCl [Cipro] 250 mg PO Q12HR #10 tablet 07/25/23 [Rx] Ketorolac [Toradol] 10 mg PO Q6HR PRN #15 tab 07/25/23 [Rx] Follow up Appointment(s)/Referral(s): Ramu Griffin MD [STAFF PHYSICIAN] - 1 Week Coy Franklin MD [Primary Care Provider] - 1-2 days Discharge Disposition: HOME SELF-CARE
== END 2023-07-25 13:05 | disposition home or self-care (01) ==
LOC: EC 14:38 → 6NMEDSUR 15:36
PROVIDERS: ADMIT Urology; ATTEND Urology
DX: N20.1 Calculus of ureter (principal); I10 Essential (primary) hypertension; J96.11 Chronic respiratory failure with hypoxia; J44.9 Chronic obstructive pulmonary disease, unspecified; I25.10 Atherosclerotic heart disease of native coronary artery without angina pectoris; K21.9 Gastro-esophageal reflux disease without esophagitis; E78.5 Hyperlipidemia, unspecified; I25.2 Old myocardial infarction; Z79.51 Long term (current) use of inhaled steroids; Z79.82 Long term (current) use of aspirin; Z79.899 Other long term (current) drug therapy; Z88.0 Allergy status to penicillin; Z88.1 Allergy status to other antibiotic agents; Z88.5 Allergy status to narcotic agent; Z90.710 Acquired absence of both cervix and uterus; Z95.5 Presence of coronary angioplasty implant and graft; Z87.01 Personal history of pneumonia (recurrent); Z90.2 Acquired absence of lung [part of]; Z85.118 Personal history of other malignant neoplasm of bronchus and lung; Z99.81 Dependence on supplemental oxygen; Z98.890 Other specified postprocedural states; Z82.49 Family history of ischemic heart disease and other diseases of the circulatory system; Z80.1 Family history of malignant neoplasm of trachea, bronchus and lung; Z83.3 Family history of diabetes mellitus; Z81.3 Family history of other psychoactive substance abuse and dependence
CPT/HCPCS: 52356; 52332; 99285; 94640 ×4; 94760 ×2; 80053; 80048; 85025; 85027; 82365; G0378 ×3; C2625; C1758 ×4; C1894; C1769; J1100; J2405; J2001; J3010; J2270; J2704; J1170; J2371